=== PATIENT | male | born 2000 | race Hispanic/Latino ===

== ENCOUNTER 2021-10-03 08:04 | Day surgery (SDC) | payer OTHER ==
[2021-10-03] MEDS ORDERED: Ringers Lactate 1,000 ML IV ONE (08:16)
[2021-10-03] MEDS ORDERED: FENTANYL CITR 100 MCG/2 ML ONE (09:31)
[2021-10-03] MEDS ORDERED: dexAMETHasone 10 MG/ML VIAL ONE (09:31)
[2021-10-03] MEDS ORDERED: MIDAZOLAM HCL 2 MG/2 ML INJ ONE (09:31)
[2021-10-03] MEDS ORDERED: propofoL 200 MG/20 ML VIAL IV ONE (09:31)
[2021-10-03] MEDS ORDERED: LIDOCAINE 2% MPF 5 ML VIAL ONE (09:32)
[2021-10-03] MEDS ORDERED: ROCURONIUM 50 MG/5 ML VIAL IV ONE (09:32)
[2021-10-03] MEDS ORDERED: BUPIVACAINE 0.5% PF 10 ML VIAL ONE (10:25)
[2021-10-03] MEDS ORDERED: BUPIVACAINE 0.25% PF 10 ML VIAL ONE (10:32)
[2021-10-03] MEDS ORDERED: ONDANSETRON 4 MG/2 ML VIAL ONE (10:59)
[2021-10-03] MEDS ORDERED: GLYCOPYRROLATE 0.2 MG/ML SYR ONE (10:59)
[2021-10-03] MEDS ORDERED: MORPHINE 10 MG/ML VIAL ONE (11:18)
[2021-10-03] MEDS ORDERED: MORPHINE 4 MG/ML SYR ONE (12:11)
[2021-10-03 12:36] VITALS: BP 150/97; O2SAT 99
[2021-10-03 13:55] VITALS: TEMP 97.6
--- NOTE | 2021-10-04 05:43 | OP ---
Date of Procedure: 10/03/2021 Surgeon: CHAS DE LA CRUZ Primary Care Physician: Mandeep Metcalf MD, Family Medicine. Preoperative Diagnoses: 1.Chronic tonsillitis. 2.Tonsillolithiasis. Postoperative Diagnoses: 1.Chronic tonsillitis. 2.Tonsillolithiasis. Procedure: Tonsillectomy. Anesthesia: General endotracheal anesthesia was administered. I also infiltrated approximately 10 m L of 0.25% Marcaine without epinephrine into bilateral tonsillar fossae, soft palate, and uvula. Estimated Blood Loss: Approximately 5 mL. Specimens: Bilateral tonsils submitted to Pathology for evaluation. Findings: Friable cryptic tonsils with multiple tonsil stones and evidence of exudate, right tonsil versus left tonsil; tonsillar hypertrophy 3/4. Complications: None. Disposition: Stable. The patient tolerated the procedure well. Indications For Procedure: The patient is a pleasant 21-year-old male who has had multiple bilateral tonsillar infections over the course of his life with at least 3 tonsillar infections treated per thaddeus acevedo for the last 3 years. His most recent infection resulted in a visit to [facility] and then he was r eferred to in for further evaluation. Exam revealed multiple tonsil stones involving bilateral tonsi ls and an enlarged friable mucosa. His condition has been refractory to multiple rounds of antibioti cs, thus these were indications to bring the patient to operative suite for the above-mentioned proce dure. He understood, all questions were answered. Risks versus benefits and complications were expl ained in detail and a consent form was signed, placed in the chart. Description Of Procedure: The patient was transferred from the preoperative holding area to the oper ative suite by Department of Anesthesia, placed on the operating table supine, sedated, and intubated in normal fashion. Table was rotated 90 degrees and a shoulder roll was placed. Head and eyes were covered with sterile blue towels and moist Ray-Linda was placed over the upper lip for protection. A McIvor retractor was introduced into the right oral commissure and directed along the endotracheal tu be and suspended from the Carlson stand. Tonsils were removed by gently grasping the superior poles with a straight Allis clamp and retracting midline thereby exposing the caudal mucosa interface. Dissection was begun and dissecting out the r ight tonsil was somewhat difficult as the patient did not have a clear fascial plane; however, the ri ght tonsil was removed. It was friable and there was evidence of multiple tonsil stones. The left t onsil was easily dissected and there was a much better fascial plane. Thus, the superior pole was gr asped and needlepoint electrocautery on the twentieth setting was used to dissect out the tonsil. He mostasis was achieved with suction Bovie on the twentieth setting. I infiltrated approximately 10 mL of 0.25% Marcaine without epinephrine into bilateral tonsillar fossae as well as the soft palate and uvula. We did take a 2-minute time-out between dissecting out the right and the left tonsil. After re-suspending onto the Carlson, I introduced an orogastric tube into the esophagus and stomach and all fluid contents were removed. All areas were checked for hemostasis. Hemostasis was achieved. The p atient was de-suspended from Carlson stand and the McIvor retractor was removed. The patient's jaw was checked and found to be in proper alignment. There was no evidence of mass or spasm or tightness. T he head turban and shoulder roll were removed and the patient was transferred back to Department of A nesthesia in stable condition where he was subsequently awakened, extubated, and transferred to posto perative care unit. He will be discharged home on an analgesic medication and will follow up in 1 week or sooner if needed. NORBERTO/YOLETTE Voice ID: [id number] Report ID: [id number]
== END 2021-10-03 13:40 | disposition home or self-care (01) ==
LOC: OR 08:04
PROVIDERS: ATTEND Otolaryngology Facial Plastic Surgery
PROC: 0CTPXZZ Resection of Tonsils, External Approach (ICD-10-PCS; principal; 2021-10-03 09:30)
DX: J35.01 Chronic tonsillitis (principal); J35.8 Other chronic diseases of tonsils and adenoids
CPT/HCPCS: 88304; 42826; J2704; J2250; J3010; J1100; J7120; J2405